=== PATIENT | male | born 1950 | race Caucasian/White ===

== ENCOUNTER → 2017-04-09 | Outpatient (CLI) | payer MEDICARE, OTHER ==
--- NOTE | ~2017-04-09 | US6 ---
[facility] A Service of [facility] RADIOLOGY TEXT RESULTS PATIENT: AIXA GRESHAM LOCATION: SG : 54 UNIT #: [id number] AGE: [address]: Bulmaro Allred MD SEX: M ORDER DR: [id number] [address] [address] [id number] O MR#: [id number] Acc #: [id number] NAME: AIXA GRESHAM : 1950 SEX: M STUDY DATE/TIME: 04/09/2017 8:19 UNIT: SGUS ROOM: STUDY DESCRIPTION: US Abdominal Limited Attending Physician: Bulmaro Allred M.D. Ordering Physician: Bulmaro Allred M.D. Primary Care Physician: Bulmaro Allred M.D. MEDICAL IMAGING REPORT This report is preliminary unless electronic signature is present. EXAM Right upper quadrant ultrasound 04/09/2017 HISTORY Abnormally elevated liver enzymes for 2 months, fatty liver, hyperlipidemia, hypertension, obesity, type 2 diabetes. FINDINGS The liver demonstrates an increase in echotexture with attenuation of the ultrasound beam characteristic of fatty infiltration. No cystic or solid mass lesions were seen in the liver. The intrahepatic bile ducts are not dilated. The gallbladder contains shadowing gallstones but there is no evidence of gallbladder wall thickening or pericholecystic fluid. The common bile duct and pancreas are poorly visualized due to overlying bowel gas. The right kidney is normal. IMPRESSION 1. Fatty infiltration of the liver. 2. Cholelithiasis. 3. Poor visualization of the pancreas and the common bile duct due to excessive bowel gas. Dictated by... Casimiro Mcbride M.D. THIS IS AN ELECTRONICALLY VERIFIED REPORT Casimiro Mcbride M.D. at 04/10/2017 7:17 AM KRT/elena TD: 04/09/2017 14:54 JOB #: [id number] [facility] A Service of [facility] RADIOLOGY TEXT RESULTS PATIENT: AIXA GRESHAM LOCATION: [facility] #: [id number] : 54 UNIT #: [id number] AGE: [address]: Bulmaro Allred MD SEX: M ORDER DR: MEDICAL IMAGING REPORT Page 1 of 1
== END | disposition home or self-care (01) ==
LOC: SGUS 08:00
DX: K76.0 Fatty (change of) liver, not elsewhere classified (principal); E66.9 Obesity, unspecified; E11.9 Type 2 diabetes mellitus without complications; I10 Essential (primary) hypertension; E78.5 Hyperlipidemia, unspecified; M10.9 Gout, unspecified; K80.20 Calculus of gallbladder without cholecystitis without obstruction
CPT/HCPCS: 76705